=== PATIENT | female | born 1965 | race Caucasian/White ===

== ENCOUNTER 2021-03-06 10:57 | Emergency (ER) | payer OTHER ==
[2021-03-06 13:13] LABS: BASOPHIL 0.3 % (0-2); EOSINOPHIL 0.9 % (0-5); HCT 54.1 % (37.0-47.0); HGB 17.9 g/dl (12.5-16.0); LYMPHOCYTE 34.7 % (15-48); MCHC 33.1 g/dL (32.0-36.0); MCV 99.6 fL (78.0-100.0); MONOCYTE 8.3 % (0-12); NEUTROPHIL 55.5 % (41-80); NRBC 0; PLT 176 K/uL (150-400); RBC 5.43 M/uL (4.20-5.40); RDW 13.2 % (11.5-14.0); WBC 5.9 K/uL (4.0-10.5)
[2021-03-06 13:18] LABS: INR 0.99 (0.9-1.2); PROTHROMBIN TIME 12.5 SECONDS (11.8-13.4); PTT 26.1 SECONDS (24.4-34.7)
[2021-03-06 13:37] LABS: ALBUMIN 3.9 g/dL (3.4-5.0); BILIRUBIN - TOTAL 0.7 mg/dL (0.2-1.0); BUN/CREAT RATIO (CALC) 32.6 RATIO; CREATININE 0.46 mg/dL (0.51-0.95); GLOBULIN (CALCULATION) 3.6 g/dL; POTASSIUM 4.5 mmol/L (3.5-5.1); TOTAL PROTEIN 7.5 g/dL (6.4-8.2)
== END 2021-03-06 15:01 | disposition home or self-care (01) ==
LOC: FER 10:57
PROVIDERS: Internal Medicine
DX: K64.8 Other hemorrhoids (principal); D75.1 Secondary polycythemia; K92.2 Gastrointestinal hemorrhage, unspecified; R63.4 Abnormal weight loss; K63.89 Other specified diseases of intestine; F17.210 Nicotine dependence, cigarettes, uncomplicated; Z98.890 Other specified postprocedural states
CPT/HCPCS: 36415; 80053; 85025; 85610; 85730; Q9967